=== PATIENT | female | born 1965 | race Caucasian/White ===

== ENCOUNTER → 2024-01-19 12:58 | Outpatient (REF) | payer OTHER, SELFPAY | LOC: WDC 12:58 | PROVIDERS: ATTENDING PHYSICIAN Physician Assistant Medical | DX: Z12.31 Encounter for screening mammogram for malignant neoplasm of breast (principal) | CPT/HCPCS: 77063; 77067 ==

== ENCOUNTER → 2025-01-03 08:23 | Outpatient (REF) | payer OTHER, SELFPAY ==
[2025-01-03 09:27] LABS: % Basophils 1.7 % (0-2); % Eosinophils 5.7 % (0-6); % Immature Granulocytes 0.2 % (0-0.5); % Lymphocytes 25.9 % (20.5-51.1); % Monocytes 7.4 % (1.7-9.3); % Neutrophils 59.1 % (42.2-75.2); Absolute Basophils 0.1 10^3/uL (0-0.2); Absolute Eosinophils 0.5 10^3/uL (0-0.7); Absolute Lymphocytes 2.1 10^3/uL (1.2-3.4); Absolute Monocytes 0.6 10^3/uL (0.1-0.6); Absolute Neutrophils 4.8 10^3/uL (1.4-6.5); Hematocrit 44.9 % (37.0-47.0); Hemoglobin 15.1 g/dL (12.0-16.0); Mean Corp Hgb Conc. 33.6 g/dL (33.0-37.0); Mean Corpuscular Hgb 29.5 pg (27.0-31.0); Mean Corpuscular Volume 87.9 fL (81.0-99.0); Mean Platelet Volume 9.6 fL (7.4-10.4); Nucleated Red Blood Cells % 0 %; Platelet Count 587 10^3/uL (130-400); Red Blood Cell Count 5.11 10^6/uL (4.20-5.40); Red Cell Dist. Width 13.7 % (11.5-14.5); White Blood Cell Count 8.2 10^3/uL (4.8-10.8)
[2025-01-03 09:50] LABS: Blood Urea Nitrogen 17 mg/dl (7-17); Calcium 10.1 mg/dl (8.4-10.2); Carbon Dioxide 30 mmol/L (22-30); Chloride 108 mmol/L (98-107); Glucose 85 mg/dl (70-99); Potassium 5.1 mmol/L (3.5-5.1); Sodium 143 mmol/L (135-145); eGFR > 60.00
== END ==
LOC: REG 08:23
PROVIDERS: ATTENDING PHYSICIAN Orthopaedic Surgery; FAMILY PHYSICIAN Family Medicine
DX: Z01.818 Encounter for other preprocedural examination (principal)
CPT/HCPCS: 36415; 80048; 85025

== ENCOUNTER → 2025-04-01 10:16 | Outpatient (REF) | payer OTHER, SELFPAY | LOC: HWWDC 10:16 | PROVIDERS: ATTENDING PHYSICIAN Nurse Practitioner Family; FAMILY PHYSICIAN Family Medicine | DX: Z12.31 Encounter for screening mammogram for malignant neoplasm of breast (principal) | CPT/HCPCS: 77063; 77067 ==

== ENCOUNTER 2025-05-31 11:34 | Emergency (ER) | payer OTHER, SELFPAY ==
[2025-05-31 11:36] VITALS: BP 134/94
--- NOTE | 2025-05-31 12:19 | ED.MUSCINJ ---
HPI-Injury
General
Chief Complaint: Musculo-Skeletal Complaint
Source: patient
Exam Limitations: none
Time Seen by Provider: 05/31/25 12:03
History of Present Illness-Injury
Initial Injury comments:
59-year-old female presents with swelling to the right leg and discomfort to the right leg over the past couple days. 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 She had been doing well. No chest pain or shortness of breath. No
fever. She was seen at the urgent care today and sent here to evaluate for DVT. She is on hydroxyurea secondary to thrombocytosis.
Phy Exam
Physical Exam
Physical Exam:
General: Well-appearing female no acute distress
Musculoskeletal exam: Right leg swollen with a subtle pinkish hue to the right leg. This is nontender not warm to the touch
There is a well-appearing surgical incision over the anterior right knee
Vascular: 2+ DP pulse right foot
Injury Course
Orders/Labs/Results
Orders:
Orders
05/31/25 11:39
US Periph Venous LOWER Ext RT Urgent
Comment:
Reason For Exam: red and swollen
MDM/Problems Addressed
Differential Diagnosis Includes:
Right leg swelling. Consider DVT versus phlebitis versus cellulitis
Ultrasound right leg pending
*Pulse Oximetry
SaO2: 98
Oxygen Mode of Delivery: Room air
Patient hypoxic: no
*Critical Care Note
Total Time (30-74mins, 75-104mins- exclusive of procedures): Not Applicable
Update Note
Update Note:
Ultrasound negative for DVT. Patient reassured. Stable for discharge with follow-up
ED Attending Note
-
Portions of this chart may have been created with voice recognition software.� Occasional wrong word or��sound alike� substitutions may have occurred due to the inherent limitations of voice recognition software.
Discharge Plan
Departure
Patient Disposition: Home (Routine Discharge)
Date of Disposition: 05/31/25
Time of Disposition: 16:10
Patient with high blood pressure during this ER visit?: No
Discharge Problem:
Leg swelling
Instructions: Muscle and Bone Pain (DC)
Prescriptions:
No Action
atorvastatin 10 MG tablet
10 mg PO QPM
diltiazem HCl 240 MG capsule,ext.rel 24h degradable
240 mg PO QPM
magnesium oxide-Mg AA chelate [Magnesium (oxide/AA chelate)] 300 MG capsule
300 mg PO QPM
fish oil-dha-epa 1 EACH capsule
1 ea PO BID
calcium carbonate-vitamin D3 1 EACH tablet
1 ea PO QPM
cetirizine [All Day Allergy (cetirizine)] 10 MG capsule
1 tab PO QPM
stazhgfc-ryp-jvlc-FA-vit K-lut [Centrum Silver Women] 1 EACH tablet
1 ea PO DAILY
apixaban [Eliquis] 5 MG tablet
5 mg PO BID
pantoprazole 40 MG tablet,delayed release (DR/EC)
40 mg PO DAILY Qty: 30 0RF
Referrals:
Shayna Pinzon MD [Family Provider, Family Practice]
Activity Restrictions/Additional Instructions:
Elevate for swelling. Use Tylenol if needed for pain. Turn if worse otherwise follow-up with your doctor
Interventions
Interventions:
*Risk Screen - Suicide Last Done: 05/31/25 11:38
*General Assessment Last Done: 05/31/25 11:38
*Neglect/Abuse Screening Last Done: 05/31/25 11:38
*ED COVID-19 Vaccine History Last Done: 05/31/25 11:38
*ED Influenza Vaccine History Last Done: 05/31/25 11:38
ED-Musculoskeletal Assessment Last Done: 05/31/25 13:45
Discharge Date and Time
Print Language: LATVIAN
== END 2025-05-31 16:17 | disposition home or self-care (01) ==
LOC: EMR 11:34
PROVIDERS: EMERGENCY PHYSICIAN Emergency Medicine; FAMILY PHYSICIAN Family Medicine
DX: R22.41 Localized swelling, mass and lump, right lower limb (principal); Z96.651 Presence of right artificial knee joint
CPT/HCPCS: 99284; 93971